=== PATIENT | male | born 1940 | race Caucasian/White ===

== ENCOUNTER 2018-07-30 16:58 | Inpatient (IN) ==
[2018-07-30] MEDS ORDERED: ASPIRIN 325 MG TABLET PO STA (17:29)
[2018-07-30] MEDS ORDERED: MORPHINE 4 MG/1 ML VIAL IV PRN ×2 (17:29→20:25)
[2018-07-30] MEDS ORDERED: ONDANSETRON 4 MG/2 ML VIAL IV PRN ×2 (17:29→20:25)
[2018-07-30 17:36] LABS: Basophils % 0.4 % (0.0-0.8); Eosinophils # 0.3 10*3/uL (0.0-0.87); Eosinophils % 3.4 % (0.00-10.9); Hematocrit 46.1 VOL% (42.0-52.0); Hemoglobin 15.6 GM/DL (14.0-18.0); Immature Granulocytes % 0.4 %; Immature Granulocytes Absolute 0.03 #; Lymphocytes # 2.7 10*3/uL (1.4-4.0); Lymphocytes % 32.3 % (21.2-54.2); Mean Corpuscular HGB Conc 33.8 GM/DL (32-36); Mean Corpuscular Hemoglobin 31 PG (27-34); Mean Corpuscular Volume 91.8 FL (87-102); Mean Platelet Volume 10.1 FL (9.6-12.0); Monocytes # 0.9 10*3/uL (0.11-0.8); Monocytes % 10.3 % (1.7-12.7); Neutrophils # 4.5 10*3/uL (1.4-7.4); Neutrophils % 53.2 % (38.7-73.9); Platelet Count 206 T/CUMM (130-400); Red Blood Count 5.02 MC/CUMM (3.8-5.5); Red Cell Distribution Width 12.4 % (9.3-17.3); White Blood Count 8.5 T/CUMM (4-12)
[2018-07-30 17:46] LABS: PT Patient Result 10.6 SECS
[2018-07-30 18:24] LABS: Albumin 3.8 G/DL (3.4-5.0); Bilirubin,Total 0.6 MG/DL (0.2-1.0); Calcium 8.8 MG/DL (8.5-10.1); Osmolality,Calculated 282.5 MOS/KG (273-304); Potassium 5.2 MMOL/L (3.5-5.1); Total Protein 7.4 G/DL (6.4-8.3)
[2018-07-30] MEDS ORDERED: MAGNESIUM SULF RIDER 4 GM in PREMIX 1 EACH IV PRN (20:25)
[2018-07-30] MEDS ORDERED: MAGNESIUM SULF RIDER 2 GM in PREMIX 1 EACH IV PRN (20:25)
[2018-07-30] MEDS ORDERED: POTASSIUM CHLORIDE 20 MEQ TABLET PO PRN (20:25)
[2018-07-30 21:12] LABS: Troponin I 0.196 NG/ML (0.00-0.045)
[2018-07-30] MEDS: SODIUM CHLORIDE 0.9% 1,000 ML IV SCH (21:21)
[2018-07-30] MEDS: ENOXAPARIN 100 MG/ML SYRINGE SUBCUT SCH (21:45)
[2018-07-30] MEDS: ALFUZOSIN 10 MG TABLET PO SCH (23:10)
[2018-07-31 00:59] LABS: Basophils % 0.5 % (0.0-0.8); Eosinophils # 0.3 10*3/uL (0.0-0.87); Hematocrit 44.3 VOL% (42.0-52.0); Hemoglobin 14.9 GM/DL (14.0-18.0); Immature Granulocytes % 0.2 %; Immature Granulocytes Absolute 0.02 #; Lymphocytes # 3.1 10*3/uL (1.4-4.0); Lymphocytes % 35.1 % (21.2-54.2); Mean Corpuscular HGB Conc 33.6 GM/DL (32-36); Mean Corpuscular Hemoglobin 31 PG (27-34); Mean Corpuscular Volume 90.8 FL (87-102); Monocytes # 0.8 10*3/uL (0.11-0.8); Monocytes % 9.3 % (1.7-12.7); Neutrophils # 4.6 10*3/uL (1.4-7.4); Neutrophils % 51.9 % (38.7-73.9); Platelet Count 185 T/CUMM (130-400); Red Blood Count 4.88 MC/CUMM (3.8-5.5); Red Cell Distribution Width 12.3 % (9.3-17.3); White Blood Count 8.8 T/CUMM (4-12)
[2018-07-31 01:30] LABS: Albumin 3.5 G/DL (3.4-5.0); Bilirubin,Total 0.9 MG/DL (0.2-1.0); Calcium 8.5 MG/DL (8.5-10.1); Osmolality,Calculated 285.4 MOS/KG (273-304); Potassium 3.6 MMOL/L (3.5-5.1); Risk Ratio 4.72; Thyroid Stimulating Hormone 1.98 uIU/ml (0.358-3.74); Total Protein 6.2 G/DL (6.4-8.3); VLDL CHOLESTEROL 29.2 MG/DL
[2018-07-31 05:33] LABS: Troponin I 0.185 NG/ML (0.00-0.045)
[2018-07-31] MEDS ORDERED: NON-FORMULARY MEDICATION (Esomeprazole Magnesium [Nexium] 20 MG) PO SCH (09:00)
[2018-07-31] MEDS: ENOXAPARIN 100 MG/ML SYRINGE SUBCUT SCH ×2 (10:02→20:19)
[2018-07-31] MEDS: METOPROLOL TARTRATE 50 MG TABLET PO SCH (12:29)
[2018-07-31] MEDS: MONTELUKAST 10 MG TABLET PO SCH (12:29)
[2018-07-31] MEDS: PANTOPRAZOLE 40 MG TABLET PO SCH (12:29)
[2018-07-31] MEDS: CHOLECALCIFEROL 1,000 UNIT TABLET PO SCH (12:29)
[2018-07-31] MEDS: ASPIRIN EC 81 MG TABLET PO SCH (12:33)
[2018-07-31] MEDS: SODIUM CHLORIDE 0.9% 1,000 ML IV SCH ×2 (12:34→16:58)
[2018-07-31 13:37] LABS: Troponin I 0.404 NG/ML (0.00-0.045)
[2018-07-31] MEDS ORDERED: MAGNESIUM SULF RIDER 2 GM in PREMIX 1 EACH IV PRN (16:49)
[2018-07-31] MEDS ORDERED: DIAZEPAM 5 MG TABLET PO ONE (16:49)
[2018-07-31] MEDS ORDERED: POTASSIUM CHLORIDE RIDER 10 MEQ in PREMIX 1 EACH IV PRN (16:49)
[2018-07-31] MEDS ORDERED: diphenhydrAMINE CAP 25 MG CAPSULE PO ONE (16:49)
[2018-07-31] MEDS ORDERED: HEPARIN/NACL 0.9% 2 UNITS/ML 1,000 ML IV ONE (17:13)
[2018-07-31] MEDS ORDERED: LIDOCAINE 1% 20 ML VIAL ONE (17:13)
[2018-07-31] MEDS ORDERED: HYDROmorphone 2 MG/1 ML VIAL ONE (17:32)
[2018-07-31] MEDS ORDERED: MIDAZOLAM 2 MG/2 ML VIAL ONE (17:32)
[2018-07-31] MEDS ORDERED: BIVALIRUDIN 250 MG VIAL IV ONE (18:15)
[2018-07-31] MEDS ORDERED: TICAGRELOR 90 MG TABLET ONE (19:01)
[2018-07-31] MEDS ORDERED: ZALEPLON 5 MG CAPSULE PO PRN (19:15)
[2018-07-31] MEDS ORDERED: NITROGLYCERIN SL 0.4 MG TABLET SL PRN (19:15)
[2018-07-31] MEDS: TICAGRELOR 90 MG TABLET PO SCH (20:19)
[2018-07-31] MEDS: ALFUZOSIN 10 MG TABLET PO SCH (20:21)
[2018-07-31] MEDS ORDERED: ROSUVASTATIN 10 MG TABLET PO SCH (21:00)
[2018-08-01] MEDS: SODIUM CHLORIDE 0.9% 1,000 ML IV SCH (02:54)
[2018-08-01 04:24] LABS: Calcium 7.6 MG/DL (8.5-10.1); Potassium 4.1 MMOL/L (3.5-5.1)
[2018-08-01 04:34] LABS: Troponin I 0.634 NG/ML (0.00-0.045)
[2018-08-01 04:51] LABS: Osmolality,Calculated 289.8 MOS/KG (273-304); Potassium 4.2 MMOL/L (3.5-5.1)
[2018-08-01] MEDS ORDERED: ROSUVASTATIN 20 MG TABLET PO SCH (07:40)
[2018-08-01 07:54] VITALS: BP 181/88
[2018-08-01] MEDS: ASPIRIN EC 81 MG TABLET PO SCH (09:00)
[2018-08-01] MEDS: TICAGRELOR 90 MG TABLET PO SCH (09:00)
[2018-08-01] MEDS ORDERED: MELOXICAM 7.5 MG TABLET PO SCH (09:00)
[2018-08-01] MEDS ORDERED: LOSARTAN 25 MG TABLET PO SCH (09:00)
[2018-08-01] MEDS ORDERED: ASPIRIN CHEW 81 MG TABLET PO SCH (09:00)
[2018-08-01] MEDS: MONTELUKAST 10 MG TABLET PO SCH (09:00)
[2018-08-01] MEDS: METOPROLOL TARTRATE 50 MG TABLET PO SCH (09:00)
[2018-08-01] MEDS: CHOLECALCIFEROL 1,000 UNIT TABLET PO SCH (09:00)
[2018-08-01] MEDS: PANTOPRAZOLE 40 MG TABLET PO SCH (09:06)
== END 2018-08-01 10:30 | disposition home or self-care (01) | DRG 247 ==
LOC: N.ED 16:58 → N.EDINP 19:39 → N.TELES 20:23
PROVIDERS: ADMIT Internal Medicine Cardiovascular Disease; ATTEND Internal Medicine Cardiovascular Disease
PROC: CLCCHCL (ICD-10-PCS; 2018-07-31 17:45)